=== PATIENT | male | born 1985 | race Hispanic/Latino ===

== ENCOUNTER → 2019-02-21 | Day surgery (SDC) | payer OTHER, BC ==
[~2019-02-21] MED LIST: BENTYL PO; CIPRO; FENTANYL CITRATE/PF 100MCG/2 ML INJ ONE; HYOSCYAMINE 0.125 MG TAB ONE; MIDAZOLAM HCL 2 MG/2 ML VIAL ONE; PENTASA PO; PENTASA500 MG PO; PROPOFOL IV EMULSION 10 MG/ML 50 ML VIAL ONE; VICODIN ES TAB1 EACH PO; Z.0.LEVAQUIN500 MG PO; Z.0.NEXIUM40 MG PO; nexium
[2019-02-21 15:20] VITALS: BP 142/96
[2019-02-21 15:54] LABS: WBC,FECAL (FECAL LACTOFERRIN) NEGATIVE (NEGATIVE)
--- NOTE | 2019-02-21 22:24 | Operative Report ---
DATE OF PROCEDURE: 02/21/2019 SURGEON: Anton Watkins MD INDICATIONS FOR EGD: Acid reflux, indications for colonoscopy, abdominal pain, diarrhea. MEDICATIONS: The patient was done under MAC, please see anesthesiologist's note. PROCEDURE IN DETAIL: With the patient in left lateral decubitus position, the flexible fiberoptic Olympus gastroscope was introduced into the esophagus under direct visualization without any difficulty. There was some patchy erythema noted in distal esophagus. The scope was then advanced with ease into the stomach. Mucosa overlying the antrum and the body revealed some diffuse erythema and low-grade edema and biopsies were obtained and sent to stain for H pylori. A minute polyp was noted in the midbody of the stomach along the anterior wall and that was partially excised with cold biopsy forceps. The pylorus was of normal contour and shape, it was intubated with ease and the scope was advanced all the way to the second portion of the duodenum. The scope was then withdrawn slowly and biopsies were obtained from the proximal second portion and duodenal bulb to rule out sprue. The scope was then withdrawn back into the stomach and retroflexed and mucosa overlying the fundus and cardia appeared to be within normal limits. The scope was then straightened out it was subsequently withdrawn. The patient tolerated procedure well. IMPRESSION: 1. Distal esophagitis, mild. 2. Gastritis, biopsied, biopsies sent to stain for H pylori. 3. Gastric polyp, midbody, anterior wall, partially excised with cold biopsy forceps. 4. Rule out sprue. PLAN: Follow up histology. Continue Nexium 40 mg one p.o. q.a.m. a.c. The patient was then turned around after adequate lubrication of the anal canal. A flexible fiberoptic Olympus colonoscope was inserted into the rectum with ease and advanced all the way to the cecum. It was then withdrawn slowly. Mucosa overlying the cecum appeared to be within normal limits. The ileocecal valve was intubated and the scope was advanced into the terminal ileum. Biopsies were obtained. The scope was then withdrawn back into the colon. It was then withdrawn slowly. Mucosa overlying the ascending and the transverse appeared to be within normal limits. There was some patchy mild inflammatory changes noted in the left colon and the rectum and random biopsies were obtained. Some diverticular disease was noted in the sigmoid colon. Also there was some evidence of diverticulitis in the mid sigmoid colon. The scope was then retroflexed into the distal rectum and small internal hemorrhoids were noted none of which was actively bleeding. The scope was then straightened out, it was subsequently withdrawn after securing an adequate stool specimen that was sent for the appropriate stool studies. The patient tolerated procedure well. IMPRESSION: 1. Mild patchy left-sided colitis. 2. Diverticulosis. 3. Diverticulitis. 4. Proctitis, mild. 5. Internal hemorrhoids none actively bleeding. PLAN: Follow up histology. Follow up stool studies. Initiate Flagyl 500 mg one p.o. q.i.d. x14 days and Levaquin 500 mg one p.o. daily x14 days. VSL #3 one p.o. daily. Anton Watkins MD [facility] [place] /[id number] cc: Howard Garcia DO
[2019-02-22 14:24] LABS: C DIFFICILE TOXIN A&B AMP PROB NEGATIVE (NEGATIVE)
== END | disposition home or self-care (01) ==
LOC: OR 10:54
PROVIDERS: ATTEND Internal Medicine Gastroenterology
DX: K50.90 Crohn's disease, unspecified, without complications (principal); K31.7 Polyp of stomach and duodenum; K29.50 Unspecified chronic gastritis without bleeding; K21.9 Gastro-esophageal reflux disease without esophagitis; K20.9 Esophagitis, unspecified; K57.32 Diverticulitis of large intestine without perforation or abscess without bleeding; K62.89 Other specified diseases of anus and rectum; K64.8 Other hemorrhoids; G47.33 Obstructive sleep apnea (adult) (pediatric); Z68.35 Body mass index [BMI] 35.0-35.9, adult
CPT/HCPCS: 43239; 45380; 83630; 83993; 87045; 87177; 87328; 87493; J2250; J2704; J3010; 45378